=== PATIENT | female | born 1980 | race Caucasian/White ===

== ENCOUNTER 2021-06-29 08:39 | Inpatient (IN) | payer MEDICARE, MEDICAID, SELFPAY ==
[2021-06-29 08:40] VITALS: BP 137/104; PULSE 68; RESP 16; TEMP 36.6; O2SAT 99; BMI 23.1
--- NOTE | 2021-06-29 09:46 | W.ED.GENADLT ---
HPI - General Adult General: Chief complaint: Psychiatric Symptoms Stated complaint: SI Time Seen by Provider: 06/29/21 08:40 History of Present Illness: HPI narrative: HPI: [40]yo patient w/ hx of depression, currently homeless presenting with SI. Patient tells me she would lie in front of roads and wait for cars to run me over. Patient did not take her medicine today. for On arrival, the patient is AAOx3 and cooperative with my evaluation. No focal complaints of chest pain, shortness of breath, palpitations, N/V, focal GI/ complaints. Denies any HI. No complaints of hallucinations. Onset: acute Duration: ongoing Location: home Severity: severe Review of Systems Narrative: Constitutional: No fever, no chills. HEENT: No vision changes CV: No chest pain, no palpitations PULM: No productive cough, no dyspnea. GI: No abdominal pain, no N/V/D. : No dysuria MSKEL: No muscle pain SKIN: No new rashes, no lesions. NEURO: No headache, no focal weakness. HEME: No visible bruises PSYCH: Normal mood Physical Exam Narrative: EXAM NARRATIVE: Head: Atraumatic Eyes: PERRL, conjunctiva without injection, eyes tracking ENT: Mucous membrane moist NECK: Supple without lymphadenopathy LUNGS: LCTAB CV: RRR ABDOMEN: Soft, nontender EXTREMITY: Normal ROM SKIN: No rash or erythema NEURO: Awake and alert. No focal weakness PSYCH: Cooperative mood and affect. Course Vital Signs: Vital signs: Vital Signs Temperature 97.8 F 06/29/21 08:40 Pulse Rate 68 06/29/21 08:40 Respiratory Rate 16 06/29/21 08:40 Blood Pressure 137/104 06/29/21 08:40 Pulse Oximetry 99 06/29/21 08:40 MDM - General Adult MDM Narrative: Medical decision making narrative: [40]yo patient w/ hx of depression and psychosis presenting for SI. HDS, exam within normal limit Thoughts are linear and organized, and the patient has no AH/VH, or HI. Clinically the patient displays no overt toxidrome; they are well appearing, with low suspicion for toxic ingestion given history and exam. Symptoms unlikely 2/2 anemia, hypothyroidism, infection, or ICH. Workup: CBC, CMP, Lipase, salicylate/tylenol, UDS Lab findings: wnl, +amphetamine in the urine [10:45am] On reassessment, labs and workup wnl. Patient is hemodynamically stable with no acute medical complaints. Case discussed with psychiatric provider Dr. Fernandez at [facility] psych inpatient with recommendation for admission Disposition: Psych Lab Data: Labs: Lab Results 06/29/21 06/29/21 06/29/21 09:45 09:45 09:45 WBC 10.0 10^3/uL 10^3 /uL (4.0-10.0) RBC 3.54 10^6/uL L 10 ^6/uL (4.1-5.3) Hgb 11.3 g/dL L g/dL (11.5-15.3) Hct 34.9 % L % (37.0-47.0) MCV 98.6 fl fl (81-99) MCH 31.9 pg pg (28.0-34.0) MCHC 32.4 g/dL g/dL (30.0-36.0) RDW 11.8 % L % (12.1-15.1) Plt Count 202 10^3/cmm 10^3 /cmm (130-400) MPV 11.4 fL H fL (7.4-10.4) Neut % (Auto) 69.3 % % Lymph % (Auto) 20.7 % % [place] % (Auto) 5.3 % % Eos % (Auto) 3.8 % % Baso % (Auto) 0.5 % % Neut # (Auto) 6.93 10^3/uL 10^3 /uL (1.8-7.7) Lymph # (Auto) 2.1 10^3/uL 10^3/ uL (0.8-4.8) [place] # (Auto) 0.5 10^3/uL 10^3/ uL (0.2-0.9) Eos # (Auto) 0.4 10^3/uL 10^3/ uL (0.0-0.8) Baso # (Auto) 0.1 10^3/uL 10^3/ uL (0.0-0.1) Nucleated RBC % (a uto) 0 % % Nucleated RBCs # 0.0 /100WBC /100W BC Sodium 140 mmol/L mmol/L (136-145) Potassium 3.7 mmol/L mmol/L (3.5-5.1) Chloride 106 mmol/L mmol/L (98-107) Carbon Dioxide 27 mmol/L mmol/L (22-29) Anion Gap 10.7 (5-19) BUN 8 mg/dL mg/dL (6-20) Creatinine 0.6 mg/dL mg/dL (0.5-0.9) GFR Calculation 109.6 mL/min mL/m in (90-130) Glucose 83 mg/dL mg/dL (65-115) Calculated Osmolal ity 287 mOsm/kg mOsm/ kg (285-295) Total Bilirubin 0.2 mg/dL mg/dL (0.15-1.2) AST 10 U/L U/L (0-32) ALT 6 U/L U/L (0-33) Alkaline Phosphata se 57 IU/L IU/L (35-105) Globulin 2.7 g/dL g/dL (1.3-4.6) HCG, Qual Negative (Negative) Urine Color Urine Appearance Urine pH Ur Specific Gravit y Urine Protein Urine Glucose (UA) Urine Ketones Urine Blood Urine Nitrate Urine Bilirubin Prot Sulfosalicyli c Acd Urine Urobilinogen Ur Leukocyte Giuliana ase Urine RBC Urine WBC Ur Squamous Epith Cells Amorphous Sediment Urine Bacteria Urine Opiates Scre en Ur Barbiturates Sc reen Ur Phencyclidine S crn Ur Amphetamines Sc reen U Benzodiazepines Scrn Urine Cocaine Scre en U Marijuana (THC) Screen 06/29/21 06/29/21 09:45 09:45 WBC RBC Hgb Hct MCV MCH MCHC RDW Plt Count MPV Neut % (Auto) Lymph % (Auto) [place] % (Auto) Eos % (Auto) Baso % (Auto) Neut # (Auto) Lymph # (Auto) [place] # (Auto) Eos # (Auto) Baso # (Auto) Nucleated RBC % (a uto) Nucleated RBCs # Sodium Potassium Chloride Carbon Dioxide Anion Gap BUN Creatinine GFR Calculation Glucose Calculated Osmolal ity Total Bilirubin AST ALT Alkaline Phosphata se Globulin HCG, Qual Urine Color Straw (Yellow) Urine Appearance Clear (CLEAR) Urine pH 8 H (5-7) Ur Specific Gravit y 1.010 (1.005-1.030) Urine Protein Neg (Negative) Urine Glucose (UA) Norm (Normal) Urine Ketones Negative (Negative) Urine Blood Neg (Negative) Urine Nitrate Negative (Negative) Urine Bilirubin Neg (Negative) Prot Sulfosalicyli c Acd Negative (Negative) Urine Urobilinogen Norm mg/dL mg/dL (Negative) Ur Leukocyte Giuliana ase 2+ H (Negative) Urine RBC None /hpf /hpf (0-2) Urine WBC 15-25 /hpf H /hpf (0-5) Ur Squamous Epith Cells 10-15 /hpf H /hpf (0-5) Amorphous Sediment Not Reportable Urine Bacteria 2+ /hpf H /hpf (NONE) Urine Opiates Scre en Negative ng/mL ng /mL (Negative) Ur Barbiturates Sc reen Negative ng/mL ng /mL (Negative) Ur Phencyclidine S crn Negative ng/mL ng /mL (Negative) Ur Amphetamines Sc reen Positive ng/mL H ng/mL (Negative) U Benzodiazepines Scrn Negative ng/mL ng /mL (Negative) Urine Cocaine Scre en Negative ng/mL ng /mL (Negative) U Marijuana (THC) Screen Negative ng/mL ng /mL (Negative) Coding Level of Care Code ED Unit Secy for Margarita Cruz
[2021-06-29 09:56] LABS: Basophils # 0.1 10^3/uL (0.0-0.1); Basophils % 0.5 %; Eosinophils # 0.4 10^3/uL (0.0-0.8); Eosinophils % 3.8 %; Hematocrit 34.9 % (37.0-47.0); Hemoglobin 11.3 g/dL (11.5-15.3); Lymphocytes # 2.1 10^3/uL (0.8-4.8); Lymphocytes % 20.7 %; Mean Corpuscular HGB Conc 32.4 g/dL (30.0-36.0); Mean Corpuscular Hemoglobin 31.9 pg (28.0-34.0); Mean Corpuscular Volume 98.6 fl (81-99); Mean Platelet Volume 11.4 fL (7.4-10.4); Monocytes # 0.5 10^3/uL (0.2-0.9); Monocytes % 5.3 %; Neutrophils # 6.93 10^3/uL (1.8-7.7); Neutrophils % 69.3 %; Nucleated Red Blood Cells % 0 %; Platelet Count 202 10^3/cmm (130-400); Red Blood Count 3.54 10^6/uL (4.1-5.3); Red Cell Distribution Width 11.8 % (12.1-15.1)
[2021-06-29 10:01] LABS: HCG Qualitative Urine. Negative (Negative)
[2021-06-29 10:07] LABS: Amphetamines Screen Urine Positive (Negative); Barbiturates Screen Urine Negative (Negative); Benzodiazepines Screen Urine Negative (Negative); Cocaine Screen Urine Negative (Negative); Opiate Screen Urine Negative (Negative); PCP Screen Urine Negative (Negative); THC Screen Urine Negative (Negative)
[2021-06-29 10:10] LABS: Add Urine Microscopic? YES; Bilirubin Urine Neg (Negative); Blood Urine Neg (Negative); Glucose Urine UA Norm (Normal); Ketones Urine Negative (Negative); Leukocyte Esterase Urine 2+ (Negative); Nitrate Urine Negative (Negative); Protein Urine Neg (Negative); Sulfosalicylic Acid Urine Negative (Negative); Urine Appearance Clear (CLEAR); Urine Color Straw (Yellow); Urobilinogen Urine Norm (Negative); WBC Urine 15-25 /hpf (0-5); pH Urine 8 (5-7)
[2021-06-29 10:11] LABS: Add Urine Culture? No; Bacteria Urine 2+ /hpf
[2021-06-29 10:14] LABS: Alanine Aminotransferase 6 U/L (0-33); Albumin Level 3.4 g/dL (3.5-5.2); Alkaline Phosphatase 57 IU/L (35-105); Anion Gap 10.7 (5-19); Aspartate Amino Transferase 10 U/L (0-32); Blood Urea Nitrogen 8 mg/dL (6-20); Calcium 7.6 mg/dL (8.5-10.5); Carbon Dioxide 27 mmol/L (22-29); Chloride 106 mmol/L (98-107); Creatinine Clr Calc Pharmacy 110.5152; Globulin 2.7 g/dL (1.3-4.6); Glomerular Filtration Rate 109.6 mL/min (90-130); Glucose 83 mg/dL (65-115); Osmolality Calculated 287 mOsm/kg (285-295); Potassium 3.7 mmol/L (3.5-5.1); Sodium 140 mmol/L (136-145); Total Bilirubin 0.2 mg/dL (0.15-1.2); Total Protein 6.1 g/dL (6.6-8.7)
[2021-06-29 10:20] LABS: Acetaminophen < 5.0 ug/mL (10-30); Alcohol Level < 10 mg/dL (0-10); Salicylate < 0.3 mg/dL (3-10)
[2021-06-29 11:12] VITALS: BP 127/83; PULSE 74; RESP 20; TEMP 36.6; O2SAT 100
[2021-06-29 14:00] VITALS: BP 127/83; PULSE 74; RESP 20; TEMP 36.6
[2021-06-29] MEDS: divalproex DR 500 mg Tablet PO (18:22)
[2021-06-29 19:25] VITALS: PULSE 72; RESP 16; O2SAT 96
[2021-06-29] MEDS: CLONazepam 1 mg Tablet PO (19:45)
[2021-06-29 19:46] VITALS: BP 128/85; PULSE 78; RESP 15; O2SAT 98
[2021-06-29] MEDS: trazodone 50 mg Tablet PO (22:24)
[2021-06-30 06:00] VITALS: BP 111/70; PULSE 81; RESP 16; TEMP 37.2; O2SAT 99
[2021-06-30] MEDS: fluoxetine 20 mg Capsule PO (08:59)
[2021-06-30] MEDS: diazePAM 5 mg Tablet PO ×3 (08:59→19:47)
[2021-06-30] MEDS: divalproex DR 500 mg Tablet PO ×2 (08:59→17:47)
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
[2021-06-30] MEDS: nicotine 2 mg Gum BUCCAL (10:37)
--- NOTE | 2021-06-30 11:01 | NPU.GN ---
[facility] Unit Group Topic: Ice Breakers General Mood of Group: Joslyn did attend and participate in group today. She was social, hygiene was good , and seems mentally stable.
[2021-06-30 13:41] VITALS: BP 111/70; PULSE 81; RESP 16; TEMP 37.2; O2SAT 99
[2021-06-30 13:44] VITALS: BP 105/64; PULSE 67; RESP 17; O2SAT 97
[2021-06-30] MEDS: albuterol 8 gm MDI 2 PUFF INHALATION (18:40)
[2021-06-30 18:41] VITALS: PULSE 71; RESP 18; O2SAT 99
[2021-06-30 19:22] VITALS: BP 127/85; PULSE 88; RESP 16; TEMP 37.1; O2SAT 99
[2021-06-30] MEDS: trazodone 100 mg Tablet PO (19:47)
[2021-07-01 06:00] VITALS: BP 99/55; PULSE 68; RESP 14; TEMP 36.7; O2SAT 99
[2021-07-01] MEDS: divalproex DR 500 mg Tablet PO (08:40)
[2021-07-01] MEDS: diazePAM 5 mg Tablet PO (08:40)
[2021-07-01] MEDS: fluoxetine 20 mg Capsule PO (08:43)
[2021-07-01 09:15] VITALS: PULSE 91; RESP 18; O2SAT 98
[2021-07-01] MEDS: albuterol 8 gm MDI 2 PUFF INHALATION (09:15)
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
[2021-07-01 10:21] VITALS: BP 99/55; PULSE 91; RESP 18; TEMP 36.7; O2SAT 98
== END 2021-07-01 12:17 | disposition home or self-care (01) | DRG 883 ==
LOC: ER 10:49 → NP 06-30 11:03
PROVIDERS: Admitting Provider Psychiatry & Neurology Psychiatry; Emergency Provider Emergency Medicine; PCP Family Medicine; Visit Provider Psychiatry & Neurology Psychiatry
DX: F60.3 Borderline personality disorder (principal); F33.2 Major depressive disorder, recurrent severe without psychotic features; R45.851 Suicidal ideations; F41.9 Anxiety disorder, unspecified; Z91.52 Personal history of nonsuicidal self-harm; Z91.419 Personal history of unspecified adult abuse; Z59.01 Sheltered homelessness
CPT/HCPCS: 80053; 80306; 80307; 81001; 81025; 85025; 94640; 97165; J3535

== ENCOUNTER 2023-10-02 12:31 | Emergency (ER) | payer MEDICARE, SELFPAY ==
[2023-10-02 12:34] VITALS: BP 115/75; PULSE 81; RESP 15; TEMP 36.6; O2SAT 100
[2023-10-02 12:42] LABS: Glucose Point of Care 128 mg/dL (70-110)
--- NOTE | 2023-10-02 13:36 | ED_ITS ---
HPI - Nausea/Vomiting/Diarrhea 2 General: Chief complaint: Nausea/Vomiting/Diarrhea Stated complaint: n/v, dizzy, weakness Time Seen by Provider: 10/02/23 13:26 History of Present Illness: The patient presents to the ER with a chief complaint of difficulty urinating for the past three days. The patient denies any abdominal pain, fever, constipation, or diarrhea. They report normal eating habits and no consumption of unapproved water or food sources. The patient describes an episode of hematuria yesterday, initially mistaking it for the onset of their period. However, they confirm that they are not currently menstruating. Associated symtoms: Denies palpitations Review of Systems 2 General: Reports: 10 or more systems reviewed and unremarkable except in HPI and below Const: Denies: fever(s) Card: Denies: palpitations or edema Resp: Denies: dyspnea Skin/Breast: Denies: rash Physical Exam 2 Const: COMMON NORMALS: no acute distress, patient oriented x3, healthy appearing, alert and well nourished HENMT: COMMON NORMALS: normocephalic HEAD & SCALP: normocephalic Eye: COMMON NORMALS: EOMs intact bilaterally Neck/C-Spine: COMMON NORMALS: full ROM and supple Resp: COMMON NORMALS: normal respiratory effort, No retractions and clear to auscultation bilaterally AUSCULTATION: clear to auscultation bilaterally Cardio: COMMON NORMALS: regular rate, regular rhythm, No gallops present (Cardio) and No murmurs present (Cardio) RATE: regular rate RHYTHM: r egular rhythm GI: COMMON NORMALS: Soft to palpation and non-tender PALPATION: Yes Soft to palpation Extremity: GENERAL: Yes normal exam except as noted Neuro: COMMON NORMALS: patient oriented x3 SENSORIUM/ORIENTATION: Yes alert Skin: COMMON NORMALS: no rashes or lesions noted GENERAL SKIN EXAM: no rashes or lesions noted Course 2 Vital Signs: Vital signs: Vital Signs Temperature 97.8 F 10/02/23 12:34 Pulse Rate 58 L 10/02/23 14:32 Respiratory Rate 15 10/02/23 12:34 Blood Pressure 126/85 10/02/23 14:32 Pulse Oximetry 100 10/02/23 14:32 Oxygen Delivery Me thod Room Air 10/02/23 14:32 MDM - Nausea/Vomiting/Diarrhea Medical Decision Making 42-year-old female presents to the emergency department for evaluation of primarily nausea, vomiting, and abdominal pain. Patient's physical exam and laboratory evaluation are globally unremarkable. She does have a slight elevation in liver enzymes likely secondary to vomiting. UA negative for acute cystitis.Patient's hemoglobin improved from baseline. GFR calculated is decreased. However, all other aspects of the chemistry are globally normal. Patient does have hypocalcemia. Patient encouraged to start taking calcium supplement. Patient discharged home in improved condition. Return precautions discussed Differential Diagnosis Likely food poisoning, gastroenteritis, drug-induced nausea and vomiting and dehydration Lab Data 10/02/23 13:35 10/02/23 13:35 Laboratory Results WBC 6.13 10^3/uL (3.29-11.43) 10/02/23 13:35 RBC 3.62 10^6/uL (3.85-5.65) L 10/02/23 13:35 Hgb 11.50 g/dL (11.27-16.99) 10/02/23 13:35 Hct 35.7 % (36-47) L 10/02/23 13:35 MCV 98.6 fl (85-98) H 10/02/23 13:35 MCH 31.8 pg (27-33) 10/02/23 13:35 MCHC 32.2 g/dL (30-55) 10/02/23 13:35 RDW 12.4 % (12.1-15.1) 10/02/23 13:35 Plt Count 210 10^3/cmm (157-399) 10/02/23 13:35 MPV 10.4 fL (7.4-10.4) 10/02/23 13:35 Neut % (Auto) 61.1 % 10/02/23 13:35 Lymph % (Auto) 25.0 % 10/02/23 13:35 [place] % (Auto) 7.5 % 10/02/23 13:35 Eos % (Auto) 5.9 % 10/02/23 13:35 Baso % (Auto) 0.5 % 10/02/23 13:35 Neut # (Auto) 3.75 10^3/uL (1.8-7.7) 10/02/23 13:35 Lymph # (Auto) 1.5 10^3/uL (0.8-4.8) 10/02/23 13:35 [place] # (Auto) 0.5 10^3/uL (0.2-0.9) 10/02/23 13:35 Eos # (Auto) 0.4 10^3/uL (0.0-0.8) 10/02/23 13:35 Baso # (Auto) 0.0 10^3/uL (0.0-0.1) 10/02/23 13:35 Nucleated RBC % (auto) 0 % 10/02/23 13:35 Nucleated RBCs # 0.0 /100WBC 10/02/23 13:35 Sodium 137 mmol/L (136-145) 10/02/23 13:35 Potassium 3.9 mmol/L (3.5-5.1) 10/02/23 13:35 Chloride 105 mmol/L (98-107) 10/02/23 13:35 Carbon Dioxide 24 mmol/L (22-29) 10/02/23 13:35 Anion Gap 11.9 (5-19) 10/02/23 13:35 BUN 9 mg/dL (6-20) 10/02/23 13:35 Creatinine 0.8 mg/dL (0.5-0.9) 10/02/23 13:35 GFR Calculation 77.9 mL/min (90-130) L 10/02/23 13:35 Glucose 77 mg/dL (65-115) 10/02/23 13:35 POC Glucose 128 mg/dL (70-110) H 10/02/23 12:39 Calculated Osmolality 281 mOsm/kg (285-295) L 10/02/23 13:35 Calcium 8.1 mg/dL (8.5-10.5) L 10/02/23 13:35 Total Bilirubin 0.2 mg/dL (0.15-1.2) 10/02/23 13:35 AST 35 U/L (0-32) H 10/02/23 13:35 ALT 53 U/L (0-33) H 10/02/23 13:35 Alkaline Phosphatase 66 U/L (35-105) 10/02/23 13:35 Total Protein 6.5 g/dL (6.6-8.7) L 10/02/23 13:35 Albumin 4.0 g/dL (3.5-5.2) 10/02/23 13:35 Globulin 2.5 g/dL (1.3-4.6) 10/02/23 13:35 Urine Color Colorless (Yellow) 10/02/23 14:26 Urine Appearance Clear (CLEAR) 10/02/23 14:26 Urine pH 7 (5-7) 10/02/23 14:26 Ur Specific [place] 1.005 (1.005-1.030) 10/02/23 14:26 Urine Protein Neg (Negative) 10/02/23 14:26 Urine Glucose (UA) Norm (Normal) 10/02/23 14:26 Urine Ketones Negative (Negative) 10/02/23 14:26 Urine Blood Neg (Negative) 10/02/23 14:26 Urine Nitrate Negative (Negative) 10/02/23 14:26 Urine Bilirubin Neg (Negative) 10/02/23 14:26 Urine Urobilinogen Norm mg/dL (Negative) 10/02/23 14:26 Ur Leukocyte Esterase Negative (Negative) 10/02/23 14:26 All radiology interpretation(s) finalized by discharge Discharge Plan Discharge Patient Disposition: Home Clinical Impression: Gastroenteritis Condition: Stable Prescriptions: No Action trazodone 50 mg tablet 100 mg PO BEDTIME 30 Days Qty: 60 1RF divalproex 500 mg tablet,delayed release (DR/EC) 500 mg PO BID 30 Days Qty: 60 1RF ProAir HFA 90 mcg/actuation HFA aerosol inhaler 2 puff INHALATION Q6H PRN (Reason: Shortness Of Breath) Qty: 8.5 2RF fluoxetine 40 mg capsule 80 mg PO DAILY 30 Days Qty: 60 1RF clonazepam 0.5 mg tablet 0.5 mg PO BID Qty: 60 0RF Discharge Orders: Discharge ED (Routine); Ordered 10/02/23 Ordered By: Rafael Riley Referrals: Matilde Nelson MD [Primary Care Provider] - Discharge Diet: Advance as tolerated Discharge Activity: Resume usual activity Patient Instructions: Acute Nausea and Vomiting (DC), Opioid Safety, Pain Management Coding Level of Care Code ED [employer] for Margarita Cruz
[2023-10-02 13:47] LABS: Basophils % 0.5 %; Eosinophils # 0.4 10^3/uL (0.0-0.8); Eosinophils % 5.9 %; Hematocrit 35.7 % (36-47); Lymphocytes # 1.5 10^3/uL (0.8-4.8); Mean Corpuscular HGB Conc 32.2 g/dL (30-55); Mean Corpuscular Hemoglobin 31.8 pg (27-33); Mean Corpuscular Volume 98.6 fl (85-98); Mean Platelet Volume 10.4 fL (7.4-10.4); Monocytes # 0.5 10^3/uL (0.2-0.9); Monocytes % 7.5 %; Neutrophils # 3.75 10^3/uL (1.8-7.7); Neutrophils % 61.1 %; Nucleated Red Blood Cells % 0 %; Platelet Count 210 10^3/cmm (157-399); Red Blood Count 3.62 10^6/uL (3.85-5.65); Red Cell Distribution Width 12.4 % (12.1-15.1); White Blood Count 6.13 10^3/uL (3.29-11.43)
[2023-10-02 14:07] LABS: Alanine Aminotransferase 53 U/L (0-33); Alkaline Phosphatase 66 U/L (35-105); Anion Gap 11.9 (5-19); Aspartate Amino Transferase 35 U/L (0-32); Blood Urea Nitrogen 9 mg/dL (6-20); Calcium 8.1 mg/dL (8.5-10.5); Carbon Dioxide 24 mmol/L (22-29); Chloride 105 mmol/L (98-107); Creatinine Clr Calc Pharmacy 87.6208; Globulin 2.5 g/dL (1.3-4.6); Glomerular Filtration Rate 77.9 mL/min (90-130); Glucose 77 mg/dL (65-115); Osmolality Calculated 281 mOsm/kg (285-295); Potassium 3.9 mmol/L (3.5-5.1); Sodium 137 mmol/L (136-145); Total Bilirubin 0.2 mg/dL (0.15-1.2); Total Protein 6.5 g/dL (6.6-8.7)
[2023-10-02] MEDS: sodium chloride 0.9% 1,000 ML 999 ML IV (14:27)
[2023-10-02] MEDS: ondansetron 2 mg/ML SDV 2 mL 4 MG IVP (14:27)
[2023-10-02 14:32] VITALS: BP 126/85; PULSE 58; O2SAT 100
[2023-10-02 14:36] LABS: Add Urine Microscopic? NO; Charge for UA Resulting for Rev
[2023-10-02 14:45] LABS: Bilirubin Urine Neg (Negative); Blood Urine Neg (Negative); Glucose Urine UA Norm (Normal); Ketones Urine Negative (Negative); Leukocyte Esterase Urine Negative (Negative); Nitrate Urine Negative (Negative); Protein Urine Neg (Negative); Specific Gravity, Urine 1.005 (1.005-1.030); Urine Appearance Clear (CLEAR); Urine Color Colorless (Yellow); Urobilinogen Urine Norm (Negative); pH Urine 7 (5-7)
[2023-10-02 16:14] VITALS: BP 131/93; PULSE 80; O2SAT 96
[2023-10-02 16:21] VITALS: BP 131/93; PULSE 80; RESP 15; TEMP 36.6; O2SAT 96
== END 2023-10-02 16:23 | disposition home or self-care (01) ==
PROVIDERS: Emergency Provider General Practice; PCP Family Medicine
DX: K52.9 Noninfective gastroenteritis and colitis, unspecified (principal)
CPT/HCPCS: 36416; 80053; 81003; 82962; 85025; 96361; 96374; 99284; J2405; J7030